=== PATIENT | female | born 1975 | race Caucasian/White ===

== ENCOUNTER → 2021-08-12 14:33 | Outpatient (CLI) | payer OTHER, SELFPAY | PROVIDERS: Referring Provider Internal Medicine; Visit Provider Internal Medicine | DX: Z23 Encounter for immunization (principal) | CPT/HCPCS: 90471; 90686 ==

== ENCOUNTER → 2021-09-10 14:04 | Outpatient (CLI) | payer OTHER, SELFPAY ==
[2021-09-10] MEDS: COVID-19 VACC #3, MRNA(MOD) 50 MCG/0.25 ML VIAL IM (14:08)
== END ==
PROVIDERS: Visit Provider Internal Medicine
DX: Z23 Encounter for immunization (principal)
CPT/HCPCS: 0013A; 91301

== ENCOUNTER → 2022-09-23 13:47 | Outpatient (CLI) | payer OTHER, SELFPAY | PROVIDERS: PCP Family Medicine; Referring Provider Internal Medicine; Visit Provider Internal Medicine | DX: Z23 Encounter for immunization (principal) | CPT/HCPCS: 90471; 90686 ==

== ENCOUNTER → 2023-05-12 15:46 | Outpatient (CLI) | payer OTHER, SELFPAY ==
[2023-05-12 17:05] LABS: Add Manual Diff / Slide Review NO; Basophils Absolute Auto 0 /uL (0-100); Basophils Percent Auto 0.4 % (0-2); Eosinophils Absolute Auto 100 /uL (0-450); Eosinophils Percent Auto 1.1 % (2-4); Hematocrit 39.2 % (36-46); Hemoglobin 13.3 g/dL (12.0-16.0); Lymphocytes Absolute Auto 1600 /uL (1100-4500); Lymphocytes Percent Auto 32.2 % (25-40); Mean Corpuscular HGB Conc 33.8 % (30-36); Mean Corpuscular Hemoglobin 28.9 PG (26-34); Mean Corpuscular Volume 85.4 fL (80-100); Monocytes Absolute Auto 400 /uL (0-900); Monocytes Percent Auto 8.3 % (3-14); Neutrophils Absolute Auto 2900 /uL (1500-7000); Platelet Count 251 X10^3/uL (150-400); Red Blood Cell Count 4.59 X10^6/uL (4.0-5.2); White Blood Cell Count 5.1 X10^3/uL (4.5-11.0)
[2023-05-12 17:21] LABS: Cholesterol 236 mg/dL (140-199); HDL Cholesterol 52 mg/dL (40-60); LDL Cholesterol Calculated 141 mg/dL (<100); Triglycerides 217 mg/dL (35-150)
== END ==
PROVIDERS: PCP Family Medicine; Referring Provider Family Medicine; Visit Provider Family Medicine
DX: R79.89 Other specified abnormal findings of blood chemistry (principal); Z86.2 Personal history of diseases of the blood and blood-forming organs and certain disorders involving the immune mechanism
CPT/HCPCS: 36415; 80061; 85025

== ENCOUNTER → 2023-06-01 12:18 | Outpatient (CLI) | payer OTHER, SELFPAY | PROVIDERS: PCP Family Medicine; Visit Provider Nurse Practitioner Family | DX: J02.9 Acute pharyngitis, unspecified (principal) | CPT/HCPCS: 87070 ==

== ENCOUNTER → 2023-08-22 | Outpatient (CLI) | payer OTHER, SELFPAY | PROVIDERS: PCP Family Medicine; Referring Provider Family Medicine; Visit Provider Family Medicine | DX: Z23 Encounter for immunization (principal) | CPT/HCPCS: 90471; 90686 ==

== ENCOUNTER → 2024-08-14 17:36 | Outpatient (CLI) | payer OTHER, SELFPAY | PROVIDERS: PCP Family Medicine; Referring Provider Internal Medicine; Visit Provider Internal Medicine | DX: Z23 Encounter for immunization (principal) | CPT/HCPCS: 90471; 90656 ==

== ENCOUNTER → 2025-09-17 06:00 | Outpatient (CLI) | payer OTHER, SELFPAY | PROVIDERS: PCP Family Medicine; Referring Provider Family Medicine; Visit Provider Family Medicine | DX: R00.2 Palpitations (principal) | CPT/HCPCS: 93242 ==

== ENCOUNTER → 2025-09-30 06:42 | Outpatient (CLI) | payer OTHER, SELFPAY ==
--- NOTE | 2025-09-30 06:45 | DI.ECHO.S_ITS ---
[facility] : : [address] : : [place] : : [id number] : : Phone: [phone] Echocardiogram Report + + :Name: NICHOL HUNTLEY Study Date: 09/30/2025 Height: 70 in : :[facility] ReadingLocation: Weight: 127 lb : : Gender: Female BSA: 1.7 m2 : :: 1975 Age: 50 yrs BP: 107/70 mmHg: :Reason For Study: Screening for Marfan syndrome : :Ordering Physician: ARTEM, : :JANEL Performed By: Travis Mooney : :Referring: JANEL MCGILL : + + Interpretation Summary The ejection fraction is estimated to be 55-60%. Normal diastolic function. The right ventricle is normal in size and function. There is borderline mitral valve prolapse. Pulmonary artery pressures cannot be estimated because of the lack of a measurable TR jet velocity but the IVC suggests a CVP of around 3 mmHg. The ascending aorta is normal in size. Procedure: A two-dimensional transthoracic echocardiogram with color flow and Doppler was performed. The study quality was technically adequate. There is no prior echocardiogram noted for this patient. The heart rate ranged between 60-67 bpm during the study. Left Ventricle: The left ventricle is normal in size and wall thickness. Left ventricular systolic function is normal. The ejection fraction is estimated to be 55-60%. There are no focal wall motion abnormalities. Normal diastolic function. Right Ventricle: The right ventricle is normal in size and function. Atria: The left atrial size is normal. Right atrial size is normal. There is no Doppler evidence for an atrial septal defect. Mitral Valve: The mitral valve leaflets appear to open well. There is borderline mitral valve prolapse. There is no mitral valve stenosis. There is trace mitral regurgitation. Aortic Valve: The aortic valve is trileaflet. The aortic valve opens well. There is no aortic valve stenosis. There is trace aortic regurgitation. Tricuspid Valve: The tricuspid valve leaflets are thin and pliable. There is trace tricuspid regurgitation. Pulmonary artery pressures cannot be estimated because of the lack of a measurable TR jet velocity but the IVC suggests a CVP of around 3 mmHg. Pulmonic Valve: The pulmonic valve is not well seen, but is grossly normal. There is a trace or physiologic amount of pulmonic regurgitation. Great Vessels: The aortic root is normal size. The ascending aorta is normal in size. Aortic arch was not well visualized. The pulmonary artery is not well visualized, but is probably normal size. The IVC is of normal diameter and collapses greater than 50% with a sniff. This suggests a low right atrial pressure of 3 mm Hg. Pericardium/ Pleura There is no pericardial effusion. There is no pleural effusion. MMode/2D Measurements & Calculations LVIDd: 4.4 cm LVOT diam: 2.0 cm LVIDs: 3.0 cm Ao root diam: 2.9 cm FS: 32.5 % asc Aorta Diam: 2.7 cm IVSd: 0.74 cm LVPWd: 0.67 cm LV brian. diameter/BSA (cm/m^2): 2.6 LV sys. diameter/BSA (cm/m^2): 1.7 LA A4 area: 13.9 cm2 RA long axis: 4.3 cm LA length (vol): 5.3 cm RA area: 8.0 cm2 RA vol: 12.7 ml RA : 7.4 ml/m2 IVC diam: 1.7 cm TAPSE: 1.8 cm Doppler Measurements & Calculations Ao V2 max: 102.3 cm/sec LVOT Max Corby: 80.8 cm/sec Ao V2 mean: 74.7 cm/sec LV V1 max P.6 mmHg Ao max P.2 mmHg LV V1 VTI: 16.3 cm Ao mean P.4 mmHg EDSON(I,D): 2.6 cm2 Ao V2 VTI: 19.8 cm EDSON(V,D): 2.5 cm2 sev ratio: 0.82 EDSON indexed to BSA (cm^2/m^2): 1.5 MV E max corby: 85.2 cm/sec PA V2 max: 69.4 cm/sec MV A max corby: 45.4 cm/sec PA V2 mean: 48.8 cm/sec MV E/A: 1.9 PA mean P.1 mmHg Med Peak E' Corby: 9.6 cm/sec PA pr(Accel): 10.9 mmHg E/E' med: 8.9 Lat Peak E' Corby: 13.5 cm/sec E/E' lat: 6.3 E/e' average: 7.6 MV dec time: 0.14 sec [facility] 51.7 ml Reading Physician:08:29 PM
== END ==
LOC: ECHO 06:43
PROVIDERS: PCP Family Medicine; Referring Provider Family Medicine; Visit Provider Family Medicine
DX: R00.2 Palpitations (principal)
CPT/HCPCS: 93306